=== PATIENT | female | born 1990 ===

== ENCOUNTER → 2024-05-04 | Outpatient (REF) | payer BC | LOC: M LAB REF 15:04 | PROVIDERS: ATTEND Internal Medicine Endocrinology, Diabetes & Metabolism | DX: E04.1 Nontoxic single thyroid nodule (principal) ==

== ENCOUNTER → 2024-06-20 | Outpatient (REF) | payer BC | LOC: M LAB REF 14:43 | PROVIDERS: ATTEND Internal Medicine Endocrinology, Diabetes & Metabolism | DX: E04.1 Nontoxic single thyroid nodule (principal) ==